=== PATIENT | female | born 1985 | race Caucasian/White ===

== ENCOUNTER 2016-06-01 14:56 | Inpatient (IN) | payer SELFPAY ==
[~2016-06-01] VITALS: Ht 170.2 cm; Wt 75.0 kg
[2016-06-01] MEDS ORDERED: SODIUM CHLORIDE FLUSH 10ML SYR IVF ONE (15:30)
[2016-06-01] MEDS ORDERED: SODIUM CHLORIDE 0.9% 1,000ML IVBOLUS ONE (15:30)
[2016-06-01 15:52] LABS: HEMOGLOBIN 13.9 g/dL (11.7-16.4)
[2016-06-01 16:03] LABS: BLOOD UREA NITROGEN 9 mg/dL (7-18)
[2016-06-01] MEDS: ALBUTEROL/IPRATROPIUM 2.5MG/0.5MG, 3 ML NPPB SCH ×2 (16:45→17:48)
[2016-06-01] MEDS ORDERED: ALBUTEROL SULFATE 2.5 MG/3 ML NPPB SCH (17:30)
[2016-06-01] MEDS ORDERED: ALBUTEROL/IPRATROPIUM 2.5MG/0.5MG, 3 ML ONE (17:45)
[2016-06-01] MEDS ORDERED: GUAIFENESIN/DM 200-20MG, 10ML UDC PO PRN (20:00)
[2016-06-01] MEDS ORDERED: ZOLPIDEM 5MG TABLET PO PRN (20:00)
[2016-06-01] MEDS ORDERED: ACETAMINOPHEN 325 MG TABLET PO PRN (20:00)
[2016-06-01] MEDS ORDERED: MAGNESIUM SULFATE PMX 2GM/50ML 50 ML IV ONE (20:00)
[2016-06-01] MEDS ORDERED: ONDANSETRON 2MG/ML, 2ML IVP PRN (20:00)
[2016-06-01] MEDS: NICOTINE 21 MG/24 HR PATCH.TD24 TD SCH (20:00)
[2016-06-01 20:20] VITALS: BP 134/83
[2016-06-01] MEDS ORDERED: ALBUTEROL/IPRATROPIUM 2.5MG/0.5MG, 3 ML NPPB PRN (21:00)
[2016-06-01] MEDS: SODIUM CHLORIDE 0.9% 1,000 ML IV SCH (21:51)
[2016-06-01] MEDS: AZITHROMYCIN 500 MG in SODIUM CHLORIDE 0.9% 250 ML IV SCH (22:15)
[2016-06-01] MEDS: methylPREDNISolone SOD SUCC 125 MG/2 ML IVPush SCH (22:16)
[2016-06-01] MEDS: ENOXAPARIN 40 MG/0.4 ML SQ SCH (22:16)
[2016-06-01] MEDS: LACTOBACILLUS CHEW TABLET PO SCH (22:17)
[2016-06-02 02:42] VITALS: BP 111/67
[2016-06-02] MEDS: methylPREDNISolone SOD SUCC 125 MG/2 ML IVPush SCH ×4 (03:35→21:58)
[2016-06-02 07:28] VITALS: BP 129/81
[2016-06-02] MEDS: HYDROcodone/APAP 5/325 TABLET PO PRN ×3 (08:09→20:25)
[2016-06-02] MEDS: LACTOBACILLUS CHEW TABLET PO SCH ×3 (08:09→20:24)
[2016-06-02 13:36] VITALS: BP 130/87
[2016-06-02] MEDS: SODIUM CHLORIDE 0.9% 1,000 ML IV SCH (15:00)
[2016-06-02] MEDS: GUAIFENESIN 200 MG TABLET PO SCH ×2 (16:57→20:24)
[2016-06-02] MEDS: NICOTINE 21 MG/24 HR PATCH.TD24 TD SCH (20:00)
[2016-06-02] MEDS: ENOXAPARIN 40 MG/0.4 ML SQ SCH (20:00)
[2016-06-02 20:10] VITALS: BP 146/91
[2016-06-02] MEDS: AZITHROMYCIN 500 MG in SODIUM CHLORIDE 0.9% 250 ML IV SCH (20:24)
[2016-06-03] MEDS: TEMAZEPAM 15 MG CAPSULE PO PRN ×2 (00:46→23:49)
[2016-06-03 01:17] VITALS: BP 136/79
[2016-06-03] MEDS: SODIUM CHLORIDE 0.9% 1,000 ML IV SCH (04:20)
[2016-06-03] MEDS: methylPREDNISolone SOD SUCC 125 MG/2 ML IVPush SCH ×3 (04:31→17:35)
[2016-06-03] MEDS: GUAIFENESIN 200 MG TABLET PO SCH ×4 (05:44→22:53)
[2016-06-03 06:41] VITALS: BP 118/74
[2016-06-03] MEDS: LACTOBACILLUS CHEW TABLET PO SCH ×3 (09:23→20:23)
[2016-06-03 13:46] VITALS: BP 148/85
[2016-06-03] MEDS: ALBUTEROL/IPRATROPIUM 2.5MG/0.5MG, 3 ML NPPB SCH ×2 (15:00→19:54)
[2016-06-03] MEDS: HYDROcodone/APAP 5/325 TABLET PO PRN ×2 (15:00→20:23)
[2016-06-03 19:28] VITALS: BP 137/92
[2016-06-03] MEDS: NICOTINE 21 MG/24 HR PATCH.TD24 TD SCH (20:00)
[2016-06-03] MEDS: ENOXAPARIN 40 MG/0.4 ML SQ SCH (20:00)
[2016-06-03] MEDS: AZITHROMYCIN 500 MG in SODIUM CHLORIDE 0.9% 250 ML IV SCH (20:23)
[2016-06-03] MEDS ORDERED: FAMOTIDINE 20 MG TABLET PO SCH (21:00)
[2016-06-04 01:32] VITALS: BP 112/70
[2016-06-04] MEDS: ALBUTEROL/IPRATROPIUM 2.5MG/0.5MG, 3 ML NPPB SCH ×2 (01:41→09:00)
[2016-06-04] MEDS: methylPREDNISolone SOD SUCC 125 MG/2 ML IVPush SCH ×2 (01:49→09:28)
[2016-06-04] MEDS: HYDROcodone/APAP 5/325 TABLET PO PRN (01:53)
[2016-06-04] MEDS: GUAIFENESIN 200 MG TABLET PO SCH ×2 (05:32→10:40)
[2016-06-04 06:35] VITALS: BP 126/78
[2016-06-04] MEDS: LACTOBACILLUS CHEW TABLET PO SCH (09:28)
[2016-06-04] MEDS ORDERED: GUAI200T3 PO (10:13)
[2016-06-04] MEDS ORDERED: FAMO20TA7 PO (10:13)
[2016-06-04] MEDS ORDERED: PRED20TA PO (10:13)
[2016-06-04] MEDS ORDERED: AZIT500T4 PO (10:13)
[2016-06-04] MEDS ORDERED: NICO1PAT5 TD (10:13)
[2016-06-04] MEDS ORDERED: ALBU18HF INH (10:15)
== END 2016-06-04 10:48 | disposition home or self-care (01) | DRG 189 ==
LOC: ED 16:09 → EDIP 18:57 → 3NE 20:17
DX: J96.01 Acute respiratory failure with hypoxia (principal); R65.10 Systemic inflammatory response syndrome (SIRS) of non-infectious origin without acute organ dysfunction; F17.210 Nicotine dependence, cigarettes, uncomplicated; J06.9 Acute upper respiratory infection, unspecified; S09.90XA Unspecified injury of head, initial encounter; W10.9XXA Fall (on) (from) unspecified stairs and steps, initial encounter; J45.909 Unspecified asthma, uncomplicated; J20.9 Acute bronchitis, unspecified; Z82.5 Family history of asthma and other chronic lower respiratory diseases; Z90.49 Acquired absence of other specified parts of digestive tract; Z88.5 Allergy status to narcotic agent
CPT/HCPCS: 36415; 70450; 71020; 80048; 82040; 83605; 85025; 85379; 87070; 87205; 93005; 94640; J0456; J1650; J7620; J2930; J3475; J7030; J7050; J7512

== ENCOUNTER 2016-06-06 18:00 | Emergency (ER) | payer SELFPAY ==
[~2016-06-06] VITALS: Ht 170.2 cm; Wt 75.9 kg
[~2016-06-06 18:00] MED LIST: ALBU18HF INH; AZIT500T4 PO; FAMO20TA7 PO; GUAI200T3 PO; NICO1PAT5 TD; PRED20TA PO
[2016-06-06] MEDS ORDERED: KETOROLAC 30 MG/1 ML ONE (19:54)
[2016-06-06] MEDS ORDERED: SODIUM CHLORIDE 0.9% 1,000ML IVBOLUS ONE (20:00)
[2016-06-06] MEDS ORDERED: KETOROLAC 30 MG/1 ML IVPush ONE (20:00)
[2016-06-06] MEDS ORDERED: SODIUM CHLORIDE FLUSH 10ML SYR IVF ONE (20:00)
[2016-06-06] MEDS ORDERED: ALBUTEROL SULFATE 2.5 MG/3 ML NPPB ONE (20:00)
[2016-06-06 20:06] LABS: HEMOGLOBIN 13.5 g/dL (11.7-16.4)
[2016-06-06 20:17] LABS: BLOOD UREA NITROGEN 17 mg/dL (7-18)
[2016-06-06] MEDS ORDERED: ALBUTEROL SULFATE 2.5 MG/3 ML ONE (20:52)
[2016-06-06 21:25] VITALS: BP 130/80
== END 2016-06-06 21:28 | disposition home or self-care (01) ==
LOC: ED 19:43
DX: J20.5 Acute bronchitis due to respiratory syncytial virus (principal); J45.909 Unspecified asthma, uncomplicated; F17.210 Nicotine dependence, cigarettes, uncomplicated; M79.1 Myalgia
CPT/HCPCS: 36415; 71010; 80048; 82040; 85025; 93005; 94640; 96361; 96374; 99285; J1885; J7030; J7613

== ENCOUNTER 2016-11-08 10:10 | Emergency (ER) | payer OTHER ==
[~2016-11-08] VITALS: Ht 170.2 cm; Wt 80.0 kg
[~2016-11-08 10:10] MED LIST changes: -AZIT500T4 PO; +AZIT500T5 PO
[2016-11-08 12:11] LABS: HEMATOCRIT 37.7 % (34.6-47.8); HEMOGLOBIN 12.7 g/dL (11.7-16.4); WHITE BLOOD COUNT 9.2 x10^3/uL (3.4-10)
[2016-11-08 12:24] LABS: BLOOD UREA NITROGEN 12 mg/dL (7-18)
[2016-11-08 12:30] LABS: ASPARTATE AMINO TRANSFERASE 9 U/L (15-37)
[2016-11-08 14:00] VITALS: BP 147/78
== END 2016-11-08 14:18 | disposition home or self-care (01) ==
LOC: ED 12:52
DX: S29.012A Strain of muscle and tendon of back wall of thorax, initial encounter (principal); X58.XXXA Exposure to other specified factors, initial encounter; Y93.89 Activity, other specified; Y99.8 Other external cause status; Y92.89 Other specified places as the place of occurrence of the external cause
CPT/HCPCS: 36415; 74000; 76770; 80053; 81001; 83690; 84703; 85025; 87086; 99285